=== PATIENT | female | born 1990 | race Caucasian/White ===

== ENCOUNTER 2022-04-11 12:58 | Outpatient (CLI) | payer OTHER, SELFPAY ==
--- NOTE | ~2022-04-11 | US_ITS ---
EXAMINATION: US pelvic complete w TV DATE: 04/11/2022 13:39 INDICATION: Pelvic pain. TECHNIQUE: Multiple transabdominal and transvaginal sonographic images of the pelvis were obtained. COMPARISON: None. FINDINGS: TRANSABDOMINAL ULTRASOUND: The uterus measures 8.0 x 3.7 x 4.5 cm. There is no free fluid in the pelvis. TRANSVAGINAL ULTRASOUND: The endometrial complex measures 4 mm in thickness. There is an intrauterine device in expected posit ion. The right ovary measures 2.8 x 2.0 x 3.3 cm. The left ovary measures 3.0 x 2.3 x 2.8 cm. There i s normal vascular flow in the ovaries. IMPRESSION: 1. Intrauterine device in expected position. Reviewed, dictated and finalized at location A.
== END 2022-04-11 12:59 | disposition home or self-care (01) ==
PROVIDERS: PCP Internal Medicine; Visit Provider Advanced Practice Midwife
DX: R10.2 Pelvic and perineal pain (principal); Z97.5 Presence of (intrauterine) contraceptive device
CPT/HCPCS: 76830; 76856

== ENCOUNTER 2022-04-11 15:00 | Emergency (ER) | payer OTHER, SELFPAY ==
--- NOTE | ~2022-04-11 | CT_ITS ---
EXAMINATION: CT abdomen pelvis w con DATE: 04/11/2022 17:57 INDICATION: bilateral lower ABD pain, N/V TECHNIQUE: Computed tomography (CT) of the abdomen and pelvis was performed with 100 mL Omnipaque-350 intravenous contrast. Automated exposure control and iterative reconstruction technique were employe d. The dose-length product was 261.43 mGy-cm. COMPARISON: None. FINDINGS: Lower thorax: Unremarkable Liver: Normal. Biliary/Gallbladder: Gallbladder is normal. No bile duct dilation. Pancreas: No mass or duct dilation. Spleen: Normal. Adrenals:No mass. Kidneys: No mass, stone, or hydronephrosis. GI tract: No small or large bowel dilation. Normal appendix. Mesentery/Peritoneum: No ascites, mass, or free air. Retroperitoneum: No mass. Pelvis: IUD. Normal uterus and ovaries. Soft Tissues: Prominent bilateral inguinal and pelvic lymph nodes, measuring up to 12 mm in short axi s diameter the right iliac chain. Bones: No acute osseous finding. IMPRESSION: Pelvic lymphadenopathy. Otherwise unremarkable CT abdomen and pelvis. Reviewed, dictated and finalized at location K.
[2022-04-11 15:32] VITALS: BP 123/78; PULSE 78; RESP 15; TEMP 36.4; O2SAT 100
--- NOTE | 2022-04-11 17:20 | ED.ABDPAIN ---
HPI - Abdominal Pain General Chief Complaint: Abdominal Pain Stated Complaint: severe abdominal cramping Time Seen by Provider: 04/11/22 17:16 Source: patient Mode of arrival: ambulatory Limitations: no limitations History of Present Illness HPI narrative: Patient is a 31-year-old female who presents the ED with report of lower ABD pain X 24 hours. 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 She reports bilateral lower abdominal cramping. Occasional nausea, but no vomiting. She called her DIRECTOR OF CATH LAB today who ordered an outpatient pelvic/transvaginal ultrasound, which is normal. She also had a urinalysis performed today which was normal. Patient denies any fever, chills, diarrhea, constipation, dysuria, hematuria. Did have relief of pain with Ibuprofen yesterday, has not taken anything for pain today. Related Data Home Medications Medication Instructions Recorded Confirmed escitalopram oxalate 20 mg tablet mg 09/11/19 berberine-herbal comb no.18 capsule cap PO 04/11/22 Allergies Allergy/AdvReac Type Severity Reaction Status Date / Time No Known Allergies Allergy Verified 04/11/22 15:42 Review of Systems Review of Systems: CONSTITUTIONAL: Denies fever, chills, or sweats. CARDIOVASCULAR: Denies chest pain. RESPIRATORY: Denies cough. GASTROINTESTINAL: Reports lower abdominal cramping, nausea. Denies constipation, rectal bleeding, vomiting, or diarrhea. GENITOURINARY: Denies dysuria or hematuria. All systems reviewed & are unremarkable except as noted in HPI and below PMFSH Past Medical History Medical History (Updated 04/11/22 @ 18:47 by Freya Villagran PA-C) Anxiety Chronic headache History of left bundle branch block (LBBB) MVP (mitral valve prolapse) Surgical History Surgical History No history of previous surgery Social History Social History Smoking status: Never smoker Gender identity (if verbalized by the patient): Female Exam Narrative: GENERAL: Well appearing, well-nourished, non-toxic, in no acute distress. HEAD: Normocephalic, atraumatic. NECK: Supple. No adenopathy, no masses. RESPIRATORY: Airway patent, respirations nonlabored. Clear to auscultation bilaterally, no rales, rhonchi, wheezing. CARDIOVASCULAR: Regular rate and rhythm without murmurs, rubs, or gallops. Peripheral pulses 2+ and equal bilaterally. ABDOMINAL: Soft, mild lower ABD tenderness to palpation, nondistended, no hepatosplenomegaly. Normoactive BS. MUSCULOSKELETAL: Moves all extremities. Strength/ROM intact without gross deformities. SKIN: Warm, dry, normal color. No rashes. NEURO: A&O X3. Speech clear. Cranial nerves II-XII grossly intact. Steady gait. No ataxic movements. PSYCHIATRIC: Appropriate mood and affect. Normal interaction. Course Consultations Consultation #1: Discussed case with Dr. Rao OBGYGarrett on-call, no further recommendations at this time. Could be due to recent viral infection. Bilateral less concern for cancer/mets. F/u with Olimpia Anthony as needed for further eval. Date: 04/11/22 Time: 18:43 Vital Signs Vital signs: Vital Signs Temperature 97.6 F 04/11/22 15:32 Pulse Rate 78 04/11/22 15:32 Respiratory Rate 15 04/11/22 15:32 Blood Pressure 123/78 04/11/22 15:32 Pulse Oximetry 100 04/11/22 15:32 Oxygen Delivery Room Air 04/11/22 15:32 Temperature 97.6 F 04/11/22 15:32 Pulse Rate 80 04/11/22 19:30 Respiratory Rate 16 04/11/22 19:30 Blood Pressure 128/86 04/11/22 19:30 Pulse Oximetry 98 04/11/22 19:30 Oxygen Delivery Room Air 04/11/22 15:32 MDM - Abdominal Pain MDM Narrative Medical decision making narrative: Patient presented to ED with 24 hours of lower abdominal cramping. Negative pelvic ultrasound performed today. Vital signs stable upon arrival. Patient with mild tenderness on exam, but no acu
[2022-04-11 17:29] LABS: Basophils Absolute Auto 0.1 K/mm3 (0.0-0.1); Basophils Percent Auto 0.6 % (0.2-1.2); Eosinophils Absolute Auto 0.1 K/mm3 (0-0.3); Eosinophils Percent Auto 0.7 % (0-4.4); Hematocrit 41.5 % (37.0-47.0); Hemoglobin 13.4 g/dL (12.0-15.0); Immature Granulocyte Absolute 0.05 K/mm3 (0.00-0.031); Immature Granulocyte Percent A 0.5 % (0-0.5); Lymphocytes Absolute Auto 1.74 K/mm3 (0.9-3.2); Lymphocytes Percent Auto 17.2 % (18.3-44.2); Mean Corpuscular HGB Conc 32.3 g/dl (32-36); Mean Corpuscular Hemoglobin 27.1 pg (26-34); Mean Corpuscular Volume 83.8 fl (80-100); Mean Platelet Volume 10.8 fl (7.4-10.4); Monocytes Absolute Auto 0.4 K/mm3 (0.1-0.6); Neutrophils Absolute Auto 7.8 K/mm3 (1.3-6.7); Platelet Count Result 244 k/mm3 (150-375); Red Blood Count 4.95 M/mm3 (4.2-5.4); Red Cell Distribution Width 13.7 % (11.5-14.5); White Blood Count 10.1 K/mm3 (4.5-10.0)
[2022-04-11 17:40] LABS: Appearance Urine Clear (Clear); Bilirubin Urine Negative (Negative); Blood Urine Negative (Negative); Color Urine Yellow (Yellow); Glucose Urine UA Negative (Negative); Ketones Urine Negative (Negative); Leukocyte Esterase Ur Trace LEU/UL (Negative); Nitrate Urine Negative (Negative); Protein Urine Negative (Negative); Specific Grav Ur 1.015 (1.001-1.035); Urobilinogen Urine 0.2 mg/dL (<2.0)
[2022-04-11 17:41] LABS: Alanine Aminotransferase 18 U/L (6-35); Albumin Level 4.8 g/dL (3.5-5.1); Alkaline Phosphatase 106 U/L (38-126); Anion Gap 9 mmol/L (8-16); Aspartate Amino Transferase 32 U/L (14-36); Bilirubin,Total 0.7 mg/dL (0.2-1.3); Blood Urea Nitrogen 7 mg/dL (7-17); Calcium 9.6 mg/dL (8.4-10.2); Carbon Dioxide 27 mmol/L (22-30); Chloride 101 mmol/L (98-107); Estimated CRCL calculation 90 ml/min; Estimated Glomerular Filt Rate > 60; Glucose 88 mg/dL (65-110); Lipase 62 U/L (23-300); Potassium 3.7 mmol/L (3.4-5.0); Sodium 137 mmol/L (137-145)
[2022-04-11] MEDS: ONDANSETRON INJ 4 MG/2 ML VIAL IV PUSH (17:44)
[2022-04-11] MEDS: SODIUM CHLORIDE 0.9% IV 1,000 ML 999 ML IV CONT (17:45)
[2022-04-11 17:48] LABS: Mucus Urine Rare /lpf; RBC Urine 0-2 /hpf (0-2); WBC Urine 0-3 /hpf
[2022-04-11 17:49] LABS: Add Urine Microscopic? YES
[2022-04-11] MEDS: KETOROLAC 30 MG/ML VIAL (*BKC) IV PUSH (18:45)
[2022-04-11 19:30] VITALS: BP 128/86; PULSE 80; RESP 16; O2SAT 98
== END 2022-04-11 19:31 | disposition home or self-care (01) ==
PROVIDERS: Emergency Medicine; Emergency Provider Emergency Medicine; PCP Internal Medicine
DX: R59.0 Localized enlarged lymph nodes (principal); R10.30 Lower abdominal pain, unspecified; F41.9 Anxiety disorder, unspecified
CPT/HCPCS: 36415; 74177; 76830; 76856; 80053; 81001; 81025; 83690; 85025; 96365; 96366; 96375; 99284; J0131; J1885; J2405; J7030; Q9967